=== PATIENT | female | born 1965 | race Caucasian/White ===

== ENCOUNTER 2021-01-10 12:16 | Emergency (ER) | payer OTHER ==
[2021-01-10] MEDS ORDERED: AMOXICILLIN875 MG PO (15:54)
[2021-01-10] MEDS ORDERED: NORCO 5-325 TA1 EACH PO (15:54)
[2021-01-10] MEDS ORDERED: NAPROXEN500 MG PO (15:54)
== END 2021-01-10 16:04 | disposition home or self-care (01) ==
LOC: FER 12:16
DX: K02.9 Dental caries, unspecified (principal); K12.2 Cellulitis and abscess of mouth
CPT/HCPCS: 99283

== ENCOUNTER 2021-06-08 10:11 | Emergency (ER) | payer MEDICARE ==
[~2021-06-08 10:11] MED LIST: AMOXICILLIN875 MG PO; NAPROXEN500 MG PO; NORCO 5-325 TA1 EACH PO
[2021-06-08] MEDS ORDERED: PERIDEX15 ML PO ×2 (10:53→10:57)
[2021-06-08] MEDS ORDERED: AMOX TR-K CLV1 EAC4 PO ×2 (10:53→10:57)
[2021-06-08] MEDS ORDERED: NORCO 5-325 TA1 EACH PO (10:55)
[2021-06-08] MEDS ORDERED: NAPROXEN500 MG PO (10:55)
== END 2021-06-08 11:14 | disposition home or self-care (01) ==
LOC: FER 10:11
DX: K02.9 Dental caries, unspecified (principal); K04.01 Reversible pulpitis
CPT/HCPCS: 99283